=== PATIENT | male | born 1980 | race Caucasian/White ===

== ENCOUNTER 2022-07-14 18:05 | Emergency (ER) | payer OTHER ==
[~2022-07-14] VITALS: Ht 170.2 cm; Wt 60.6 kg
[2022-07-14 18:59] VITALS: BP 130/84
[2022-07-14] MEDS ORDERED: LIDOCAINE 2%/EPI 1:100,000 inj. Multi-dose 20 ML VIAL IJ ONE (19:50)
[2022-07-14] MEDS ORDERED: bacitracin 15gm ointment TP ONE (19:50)
[2022-07-14] MEDS ORDERED: TETanus/Pertussis (Acell)/Diphther VAC/PF (Tdap-Adult) 0.5ml syringe IMVAC ONE (20:25)
== END 2022-07-14 20:48 | disposition home or self-care (01) ==
LOC: ER 18:07
DX: S71.112A Laceration without foreign body, left thigh, initial encounter (principal); W45.8XXA Other foreign body or object entering through skin, initial encounter; Y93.89 Activity, other specified; Y92.89 Other specified places as the place of occurrence of the external cause; Y99.8 Other external cause status
CPT/HCPCS: 12002; 90471; 90715; 99283